=== PATIENT | male | born 1980 | race Caucasian/White ===

== ENCOUNTER 2021-03-19 06:48 | Emergency (ER) | payer OTHER ==
[~2021-03-19] VITALS: Ht 180.3 cm; Wt 95.3 kg
[~2021-03-19 06:48] MED LIST: NORCO 5-325 TA1 EACH PO
[2021-03-19] MEDS ORDERED: FLOMAX0.4 MG PO (07:03)
[2021-03-19] MEDS ORDERED: IBUPROFEN 600600 M1 PO (07:06)
[2021-03-19] MEDS ORDERED: NORCO5 PO (07:06)
[2021-03-19] MEDS ORDERED: PERCOCET PO (07:35)
[2021-03-19 07:44] VITALS: BP 130/87
== END 2021-03-19 07:44 | disposition home or self-care (01) ==
LOC: M.ERS 06:48
DX: N20.0 Calculus of kidney (principal); Z79.899 Other long term (current) drug therapy